=== PATIENT | male | born 1980 | race Caucasian/White ===

== ENCOUNTER 2022-09-16 23:57 | Inpatient (IN) | payer OTHER ==
[2022-09-17 00:28] VITALS: BMI 21.1
[2022-09-17] MEDS ORDERED: LOPERAMIDE HCL 2 MG CAPSULE PO PRN (01:41)
[2022-09-17] MEDS ORDERED: IBUPROFEN 600 MG TABLET (FP) PO PRN (01:41)
[2022-09-17] MEDS ORDERED: BISMUTH SUBSALICYLATE 524 MG/30 ML PO PRN (01:41)
[2022-09-17] MEDS ORDERED: BENZOCAINE/MENTHOL (CHLORASEPTIC ) LOZENGE MM PRN (01:41)
[2022-09-17] MEDS ORDERED: hydrOXYzine PAMOATE 25 MG CAPSULE (FP) PO PRN (01:41)
[2022-09-17] MEDS ORDERED: DICYCLOMINE HCL 10 MG CAPSULE PO PRN (01:41)
[2022-09-17] MEDS ORDERED: ONDANSETRON *ODT* 4 MG TABLET SL PRN (01:41)
[2022-09-17] MEDS ORDERED: MAGNESIUM HYDROX 2400MG/30ML ORAL SUSPENSION 30 ML CUP PO PRN (01:41)
[2022-09-17] MEDS ORDERED: POLYETHYLENE GLYCOL (HEALTHYLAX) 3350 17 GM PACKET PO PRN (01:41)
[2022-09-17] MEDS ORDERED: MAG HYDROX/AL HYDROX/SIMETH 30 ML UNIT-DOSE CUP PO PRN (01:41)
[2022-09-17] MEDS ORDERED: ACETAMINOPHEN 325 MG TABLET (FP) PO PRN ×2 (01:41)
[2022-09-17] MEDS ORDERED: NALOXONE HCL (KLOXXADO) 8 MG SPRAY NS PRN (01:41)
[2022-09-17] MEDS ORDERED: IBUPROFEN 400 MG TABLET (FP) PO PRN (01:41)
[2022-09-17] MEDS: PRENATAL VITAMINS W/ FOLIC ACID TABLET (FP) PO SCH (10:26)
[2022-09-17] MEDS ORDERED: methaDONE HCL 10 MG TABLET PO ONE (12:12)
[2022-09-17] MEDS ORDERED: methaDONE 40 MG, methaDONE 20 MG PO ONE (12:45)
[2022-09-17] MEDS: NICOTINE 10 MG CARTRIDGE (INHALER) IH PRN (21:36)
[2022-09-17] MEDS: MELATONIN 5 MG TABLETS PO SCH (22:44)
[2022-09-17] MEDS: THIAMINE HCL 100 MG TABLET (FP) PO SCH (22:44)
[2022-09-17] MEDS: METHOCARBAMOL 500 MG TABLET PO PRN (22:45)
[2022-09-18] MEDS ORDERED: diazePAM 5 MG TABLET PO PRN (07:54)
[2022-09-18] MEDS ORDERED: methaDONE HCL 10 MG TABLET PO ONE ×2 (08:27→09:00)
[2022-09-18] MEDS ORDERED: methaDONE 40 MG, methaDONE 20 MG PO ONE (09:00)
[2022-09-18] MEDS: diazePAM 5 MG TABLET PO SCH ×3 (10:16→22:24)
[2022-09-18] MEDS: PRENATAL VITAMINS W/ FOLIC ACID TABLET (FP) PO SCH (10:22)
[2022-09-18 15:44] LABS: CALCIUM 8.9 mg/dL (8.5-10.1)
[2022-09-18 15:45] LABS: ALBUMIN 3.2 g/dl (3.4-5.0); BLOOD UREA NITROGEN 12.2 mg/dL (7-18)
[2022-09-18 15:48] LABS: CREATININE 0.7 mg/dL (0.55-1.3)
[2022-09-18 15:50] LABS: BILIRUBIN,TOTAL 0.6 mg/dL (0.2-1); TOT PROT 8.1 g/dl (6.4-8.2)
[2022-09-18 16:14] LABS: HEMATOCRIT 41.9 % (35.4-49); HEMOGLOBIN 13.6 GM/dL (11.7-16.9); MCH 26.6 pg (25.7-33.7); MCHC 32.6 g/dl (32.0-35.9); MEAN CELL VOLUME 81.7 fl (80-96); MEAN PLT VOLUME 7.8 fl (7.5-11.1); PLATELET COUNT 350 10^3/uL (134-434); RBC 5.12 M/mm3 (4.00-5.60); RDW 14.7 % (11.9-15.9); WHITE BLOOD COUNT 6.9 K/mm3 (4.0-10.0)
[2022-09-18] MEDS: THIAMINE HCL 100 MG TABLET (FP) PO SCH (22:26)
[2022-09-18] MEDS: MELATONIN 5 MG TABLETS PO SCH (23:11)
[2022-09-19] MEDS: NICOTINE 10 MG CARTRIDGE (INHALER) IH PRN ×2 (03:53→22:59)
[2022-09-19] MEDS: diazePAM 5 MG TABLET PO SCH ×4 (05:23→22:47)
[2022-09-19] MEDS: methaDONE 40 MG, methaDONE 20 MG PO SCH (05:23)
[2022-09-19] MEDS ORDERED: methaDONE HCL 10 MG TABLET PO SCH ×3 (06:00)
[2022-09-19] MEDS: PRENATAL VITAMINS W/ FOLIC ACID TABLET (FP) PO SCH (10:21)
[2022-09-19] MEDS: METHOCARBAMOL 500 MG TABLET PO PRN (10:21)
[2022-09-19 20:49] VITALS: RESP 18
[2022-09-19] MEDS: THIAMINE HCL 100 MG TABLET (FP) PO SCH (22:47)
[2022-09-19] MEDS: MELATONIN 5 MG TABLETS PO SCH (22:48)
[2022-09-20] MEDS: methaDONE 40 MG, methaDONE 20 MG PO SCH (05:18)
[2022-09-20] MEDS ORDERED: diazePAM 5 MG TABLET PO SCH (06:00)
[2022-09-20 09:01] VITALS: BP 110/58; PULSE 77; TEMP 96
[2022-09-20] MEDS: PRENATAL VITAMINS W/ FOLIC ACID TABLET (FP) PO SCH (09:36)
[2022-09-21] MEDS ORDERED: diazePAM 5 MG TABLET PO SCH (06:00)
[2022-09-22] MEDS ORDERED: diazePAM 5 MG TABLET PO ONE (06:00)
== END 2022-09-20 09:45 | disposition left against medical advice (07) | DRG 770 ==
LOC: YASAS 23:57 → Y6N 09-17 01:52 → UNDOADMIN 09-17 01:52
PROVIDERS: ADMIT Allergy & Immunology; ATTEND Family Medicine
PROC: HZ2ZZZZ Detoxification Services for Substance Abuse Treatment (ICD-10-PCS; principal; 2022-09-17)
DX: F10.230 Alcohol dependence with withdrawal, uncomplicated (principal); F11.20 Opioid dependence, uncomplicated; F14.20 Cocaine dependence, uncomplicated; F17.210 Nicotine dependence, cigarettes, uncomplicated; J45.909 Unspecified asthma, uncomplicated; Z28.310 Unvaccinated for COVID-19; Z28.9 Immunization not carried out for unspecified reason
CPT/HCPCS: 36415; 80053; 85027; 86780; 87811; 93005; 93010; C9803-CS; Q0162; U0003; U0005

== ENCOUNTER 2023-07-13 18:21 | Inpatient (IN) | payer OTHER ==
[2023-07-13 21:47] VITALS: BMI 19.9
[2023-07-13] MEDS ORDERED: ACETAMINOPHEN 325 MG TABLET (FP) PO PRN (22:16)
[2023-07-13] MEDS ORDERED: ONDANSETRON *ODT* 4 MG TABLET SL PRN (22:16)
[2023-07-13] MEDS ORDERED: BENZONATATE 200 MG CAPSULE PO PRN (22:16)
[2023-07-13] MEDS ORDERED: guaiFENesin 600 MG TABLET.ER (FP) PO PRN (22:16)
[2023-07-13] MEDS ORDERED: DICYCLOMINE HCL 10 MG CAPSULE PO PRN (22:16)
[2023-07-13] MEDS ORDERED: NALOXONE HCL (KLOXXADO) 8 MG SPRAY NS PRN (22:16)
[2023-07-13] MEDS ORDERED: MAGNESIUM HYDROX 2400MG/30ML ORAL SUSPENSION 30 ML CUP PO PRN (22:16)
[2023-07-13] MEDS ORDERED: BENZOCAINE/MENTHOL (CHLORASEPTIC ) LOZENGE MM PRN (22:16)
[2023-07-13] MEDS ORDERED: hydrOXYzine PAMOATE 25 MG CAPSULE (FP) PO PRN (22:16)
[2023-07-13] MEDS ORDERED: LOPERAMIDE HCL 2 MG CAPSULE PO PRN (22:16)
[2023-07-13] MEDS ORDERED: POLYETHYLENE GLYCOL (HEALTHYLAX) 3350 17 GM PACKET PO PRN (22:16)
[2023-07-13] MEDS ORDERED: MAG HYDROX/AL HYDROX/SIMETH 30 ML UNIT-DOSE CUP PO PRN (22:16)
[2023-07-13] MEDS ORDERED: NICOTINE POLACRILEX 2 MG GUM BUC PRN (22:16)
[2023-07-13] MEDS ORDERED: IBUPROFEN 600 MG TABLET (FP) PO PRN (22:16)
[2023-07-13] MEDS ORDERED: BISMUTH SUBSALICYLATE 524 MG/30 ML PO PRN (22:16)
[2023-07-13] MEDS ORDERED: IBUPROFEN 400 MG TABLET (FP) PO PRN (22:16)
[2023-07-13] MEDS ORDERED: NALOXONE HCL 0.4 MG/ML VIAL IM PRN (22:16)
[2023-07-13] MEDS: METHOCARBAMOL 500 MG TABLET PO PRN (23:35)
[2023-07-14] MEDS: PRENATAL VITAMINS W/ FOLIC ACID TABLET (FP) PO SCH (10:25)
[2023-07-14] MEDS: NICOTINE 14 MG/24 HOURS TOPICAL PATCH TD SCH (10:25)
[2023-07-14] MEDS ORDERED: diazePAM 5 MG TABLET PO PRN (11:42)
[2023-07-14 13:02] VITALS: RESP 16
[2023-07-14] MEDS ORDERED: methaDONE HCL 10 MG TABLET PO SCH (13:30)
[2023-07-14] MEDS: methaDONE 40 MG, methaDONE 20 MG PO SCH (13:34)
[2023-07-14] MEDS: diazePAM 5 MG TABLET PO SCH ×2 (17:47→22:29)
[2023-07-14] MEDS ORDERED: MELATONIN 5 MG TABLETS PO SCH (22:00)
[2023-07-14] MEDS ORDERED: THIAMINE HCL 100 MG TABLET (FP) PO SCH (22:00)
[2023-07-14] MEDS: METHOCARBAMOL 500 MG TABLET PO PRN (22:29)
[2023-07-15] MEDS: methaDONE 40 MG, methaDONE 20 MG PO SCH (05:54)
[2023-07-15] MEDS ORDERED: diazePAM 5 MG TABLET PO SCH (06:00)
[2023-07-15 09:28] VITALS: BP 147/81; PULSE 61; TEMP 98.2
[2023-07-15] MEDS: PRENATAL VITAMINS W/ FOLIC ACID TABLET (FP) PO SCH (10:44)
[2023-07-15] MEDS: NICOTINE 14 MG/24 HOURS TOPICAL PATCH TD SCH (10:44)
[2023-07-15] MEDS ORDERED: LISINOPRIL 5 MG TABLET PO SCH (13:00)
[2023-07-16] MEDS ORDERED: diazePAM 5 MG TABLET PO SCH (06:00)
[2023-07-17] MEDS ORDERED: diazePAM 5 MG TABLET PO ONE (06:00)
== END 2023-07-15 13:15 | disposition left against medical advice (07) | DRG 770 ==
LOC: YASAS 18:21 → Y6N 23:13
PROVIDERS: ADMIT Allergy & Immunology; ATTEND Allergy & Immunology
PROC: HZ2ZZZZ Detoxification Services for Substance Abuse Treatment (ICD-10-PCS; principal; 2023-07-13)
DX: F10.230 Alcohol dependence with withdrawal, uncomplicated (principal); F11.20 Opioid dependence, uncomplicated; F17.210 Nicotine dependence, cigarettes, uncomplicated; I10 Essential (primary) hypertension; J45.909 Unspecified asthma, uncomplicated; Z87.891 Personal history of nicotine dependence; Z28.310 Unvaccinated for COVID-19; Z28.9 Immunization not carried out for unspecified reason
CPT/HCPCS: 87635; 93005; 93010; Q0162

== ENCOUNTER 2024-06-28 14:07 | Inpatient (IN) | payer OTHER ==
[2024-06-28 15:11] VITALS: BMI 21.5
[2024-06-28] MEDS ORDERED: POLYETHYLENE GLYCOL (HEALTHYLAX) 3350 17 GM PACKET PO PRN (18:00)
[2024-06-28] MEDS ORDERED: NALOXONE (NARCAN) HCL 4 MG/0.1 ML SPRAY NS PRN (18:00)
[2024-06-28] MEDS ORDERED: BENZONATATE 200 MG CAPSULE PO PRN (18:00)
[2024-06-28] MEDS ORDERED: MAGNESIUM HYDROX 2400MG/30ML ORAL SUSPENSION 30 ML CUP PO PRN (18:00)
[2024-06-28] MEDS ORDERED: LOPERAMIDE HCL 2 MG CAPSULE PO PRN (18:00)
[2024-06-28] MEDS ORDERED: IBUPROFEN 400 MG TABLET (FP) PO PRN (18:00)
[2024-06-28] MEDS ORDERED: MAG HYDROX/AL HYDROX/SIMETH 30 ML UNIT-DOSE CUP PO PRN (18:00)
[2024-06-28] MEDS ORDERED: hydrOXYzine PAMOATE 25 MG CAPSULE (FP) PO PRN (18:00)
[2024-06-28] MEDS ORDERED: NALOXONE (NYS OPIOID OVERDOSE PROGRAM) 4 MG/0.1 ML SPRAY NS PRN (18:00)
[2024-06-28] MEDS ORDERED: IBUPROFEN 600 MG TABLET (FP) PO PRN (18:00)
[2024-06-28] MEDS ORDERED: guaiFENesin 600 MG TABLET.ER (FP) PO PRN (18:00)
[2024-06-28] MEDS ORDERED: ONDANSETRON *ODT* 4 MG TABLET SL PRN (18:00)
[2024-06-28] MEDS ORDERED: ACETAMINOPHEN 325 MG TABLET (FP) PO PRN (18:00)
[2024-06-28] MEDS ORDERED: BENZOCAINE/MENTHOL (CHLORASEPTIC ) LOZENGE MM PRN (18:00)
[2024-06-28] MEDS ORDERED: BISMUTH SUBSALICYLATE 524 MG/30 ML PO PRN (18:00)
[2024-06-28] MEDS ORDERED: DICYCLOMINE HCL 10 MG CAPSULE PO PRN (18:00)
[2024-06-28] MEDS: MELATONIN 5 MG TABLETS PO SCH (22:32)
[2024-06-28] MEDS: THIAMINE 100 MG TABLET PO SCH (22:32)
[2024-06-29] MEDS: ALBUTEROL SO4 HFA INHALER IH PRN (04:02)
[2024-06-29] MEDS: PRENATAL VITAMINS W/ FOLIC ACID TABLET (FP) PO SCH (10:19)
[2024-06-29] MEDS: methaDONE HCL 10 MG TABLET (FOR DETOX USE ONLY) PO ONE ×2 (11:06→11:37)
[2024-06-29] MEDS: METHOCARBAMOL 500 MG TABLET PO PRN (22:35)
[2024-06-30 06:08] VITALS: BP 146/74; PULSE 87; RESP 17; TEMP 97.6
== END 2024-06-30 08:12 | disposition home or self-care (01) | DRG 773 ==
LOC: YASAS 14:07 → Y3N 18:12
PROVIDERS: ADMIT Allergy & Immunology; ATTEND Surgery
PROC: HZ2ZZZZ Detoxification Services for Substance Abuse Treatment (ICD-10-PCS; principal; 2024-06-28)
DX: F11.20 Opioid dependence, uncomplicated (principal); F10.20 Alcohol dependence, uncomplicated; F14.20 Cocaine dependence, uncomplicated; F17.210 Nicotine dependence, cigarettes, uncomplicated; F19.282 Other psychoactive substance dependence with psychoactive substance-induced sleep disorder; J45.909 Unspecified asthma, uncomplicated; K21.9 Gastro-esophageal reflux disease without esophagitis
CPT/HCPCS: 80305; 80307; 93005; 93010